=== PATIENT | female | born 1960 | race Caucasian/White ===

== ENCOUNTER 2021-09-09 11:23 | Inpatient (IN) | payer SELFPAY ==
[~2021-09-09] VITALS: Ht 172.7 cm; Wt 54.0 kg
[2021-09-09] MEDS ORDERED: ONDANSETRON PF 4 MG/2 ML VIAL. ONE (11:56)
[2021-09-09] MEDS ORDERED: IV NORMAL SALINE 1000ML BAG 1,000 ML IV ONE (12:00)
[2021-09-09] MEDS ORDERED: ONDANSETRON PF 4 MG/2 ML VIAL. IVP ONE (12:00)
--- NOTE | 2021-09-09 12:21 | PHYS DOC ---
Past Medical History Past Surgical History: No Surgical History Smoking Status: Current Every Day Smoker Alcohol Use: None General Adult EDM: Chief Complaint: NAUSEA/VOMITING/DIARRHEA HPI: HPI: Patient is a 60 year old female who presents via EMS from home with complaint of N/V/D and dizziness. Patient states she has had loose stools off and on for 2 m onths. Her nausea, vomiting and dizziness began this morning. Patient reports her emesis is "greenish." She has not eaten or taken any fluids since about 1999 last night. En route, patient received 500 mL LR and 4 Zofran. Patient denies fever, chills, abdominal pain, chest pain, palpitations, shortness of breath, cough. Review of Systems: Review of Systems: Constitutional: See HPI HEENT: Denies vision changes, nasal congestion or sore throat. Respiratory: See HPI Cardiovascular: See HPI GI: See HPI : Denies dysuria and hematuria. Musculoskeletal: Denies back pain or joint pain. Integument: Denies rash or other skin lesion. Neurologic: Denies headache, focal weakness or sensory changes. Heart Score: C/O Chest Pain: No Current Medications: Current Medications Medications (Trade) Dose Ordered Sig/Gwyn Start Time Stop Time Status Last Admin Dose Admin Ondansetron HCl (Zofran) 4 mg 1X ONCE 09/09/21 12:00 09/09/21 12:01 Sodium Chloride 1,000 ml @ 1,000 mls/hr 1X ONCE 09/09/21 12:00 09/09/21 12:59 Allergies: Allergies: Allergies Coded Allergies Type Severity Reaction Last Updated Verified Sulfa (Sulfonamide Antibiotics) Allergy Intermediate n/v 09/09/21 Yes Physical Exam: PE: Constitutional: Well developed, well nourished, patient is sitting up in bed with retching, spitting mucus but no emesis. Cardiovascular: Heart rate regular rhythm, no murmur. Lungs & Thorax: Bilateral breath sounds clear to auscultation. Abdomen: Bowel sounds normal, soft, no tenderness, no masses, no pulsatile masses. Skin: Warm, dry, no erythema, no rash. Back: No tenderness, no CVA tenderness. Extremities: No tenderness, no cyanosis, no clubbing, ROM intact, no edema. Neurologic: Alert and oriented x3, normal motor function, no focal deficits noted. Current Patient Data: Labs: Laboratory Tests Test 09/09/21 11:45 09/09/21 12:45 09/09/21 12:55 White Blood Count 17.4 x10^3/uL (4.0-11.0) Red Blood Count 3.84 x10^6/uL (3.50-5.40) Hemoglobin 11.8 g/dL (12.0-15.5) Hematocrit 36.1 % (36.0-47.0) Mean Corpuscular Volume 94 fL (79-100) Mean Corpuscular Hemoglobin 31 pg (25-35) Mean Corpuscular Hemoglobin Concent 33 g/dL (31-37) Red Cell Distribution Width 14.4 % (11.5-14.5) Platelet Count 350 x10^3/uL (140-400) Neutrophils (%) (Auto) 81 % (31-73) Lymphocytes (%) (Auto) 15 % (24-48) Monocytes (%) (Auto) 3 % (0-9) Eosinophils (%) (Auto) 1 % (0-3) Basophils (%) (Auto) 0 % (0-3) Neutrophils # (Auto) 14.1 x10^3/uL (1.8-7.7) Lymphocytes # (Auto) 2.6 x10^3/uL (1.0-4.8) Monocytes # (Auto) 0.6 x10^3/uL (0.0-1.1) Eosinophils # (Auto) 0.2 x10^3/uL (0.0-0.7) Basophils # (Auto) 0.0 x10^3/uL (0.0-0.2) Segmented Neutrophils % 68 % (35-66) Band Neutrophils % 7 % (0-9) Lymphocytes % 22 % (24-48) Monocytes % 3 % (0-10) Toxic Granulation Slight Platelet Estimate Adequate (ADEQUATE) Urine Collection Type Unknown Urine Color Yellow Urine Clarity Clear Urine pH 7.5 (<5.0-8.0) Urine Specific [place] 1.010 (1.000-1.030) Urine Protein Negative mg/dL (NEG-TRACE) Urine Glucose (UA) Negative mg/dL (NEG) Urine Ketones (Stick) Negative mg/dL (NEG) Urine Blood Negative (NEG) Urine Nitrite Negative (NEG) Urine Bilirubin Negative (NEG) Urine Urobilinogen Dipstick 0.2 mg/dL (0.2 mg/dL) Urine Leukocyte Esterase Moderate (NEG) Urine RBC 0 /HPF (0-2) Urine WBC 11-20 /HPF (0-4) Urine Squamous Epithelial Cells Occ /LPF Urine Bacteria Many /HPF (0-FEW) Sodium Level 140 mmol/L (136-145) Potassium Level 3.6 mmol/L (3.5-5.1) Chloride Level 107 mmol/L (98-107) Carbon Dioxide Level 25 mmol/L (21-32) Anion Gap 8 (6-14) Blood Urea Nitrogen 19 mg/dL (7-20) Creatinine 0.7 mg/dL (0.6-1.0) Estimated GFR (Cockcroft-Gault) 84.8 BUN/Creatinine Ratio 27 (6-20) Glucose Level 141 mg/dL (70-99) Calcium Level 7.9 mg/dL (8.5-10.1) Total Bilirubin 0.6 mg/dL (0.2-1.0) Aspartate Amino Transf (AST/SGOT) 21 U/L (15-37) Alanine Aminotransferase (ALT/SGPT) 28 U/L (14-59) Alkaline Phosphatase 66 U/L (46-116) Total Protein 6.6 g/dL (6.4-8.2) Albumin 3.4 g/dL (3.4-5.0) Albumin/Globulin Ratio 1.1 (1.0-1.7) Lipase 109 U/L (73-393) Vital Signs: Vital Signs Date Time Temp Pulse Resp B/P (MAP) Pulse Ox O2 Delivery O2 Flow Rate FiO2 09/09/21 11:35 97.4 81 16 139/70 (93) 100 Room Air 97.4 EKG: EKG: EKG Interpreted by Dr. Nixon at 1206: Regular rate and rhythm 76 bpm with no ectopic beats. No concerning ST-T wave changes. RR interval 793 ms, prolonged QT interval 416 ms. Radiology/Procedures: Radiology/Procedures: PROCEDURE: CT ABDOMEN PELVIS WO CONTRAST Abdominal and Pelvis CT, Without Contrast: History: Reason: uti / Spl. Instructions: / History: Comparison: None. Procedure: Axial images are obtained of the abdomen and pelvis, without IV or oral contrast. Oral Contrast: No Findings: Evaluation of solid organs is limited without contrast. The gallbladder appears normal. The appendix is normal. Is calcification the riggs of the aorta without significant aneurysmal change. Liver: Normal. Spleen: Normal. Pancreas: Normal. Adrenal Glands: Normal. Kidneys: Normal. There is no free air or free fluid. There is no lymphadenopathy. The urinary bladder appears normal. There is no pericolonic inflammation identified. Impression: No acute findings. End impression PQRS Compliance Statement: One or more of the following individualized dose reduction techniques were utilized for this examination: 1. Automated exposure control 2. Adjustment of the mA and/or kV according to patient size 3. Use of iterative reconstruction technique Electronically signed by: Maurice Baez III, MD (09/09/2021 5:38 PM) [facility] Course & Med Decision Making: Course & Med Decision Making Pertinent Labs and Imaging studies reviewed. (See chart for details) Patient's daughter called to the department for an update shortly after patient arrival. Patient's daughter states that she lives close by to the patient, and called EMS today because of patient's weakness. On reevaluation, patient states that her vomiting has stopped and she is less nauseated. Lab results concerning for pyelonephritis. Patient will be given p.o. challenge. Should she be able to tolerate by mouth, she will be treated outpatient antibiotics. Patient's nausea and vomiting is intractable. Patient will be admitted to hospitalist, Dr. Baires, for IV antibiotic treatment and nausea. Suzan Disclaimer: Suzan Disclaimer: This electronic medical record was generated, in whole or in part, using a voice recognition dictation system. Departure Departure Impression: Primary Impression: UTI (urinary tract infection) with pyuria Additional Impression: Intractable nausea and vomiting Disposition: ADMITTED INPATIENT Admitting Physician: MATILDE Hadley) Condition: GUARDED KAL FOSTER Sep 09, 2021 12:21
[2021-09-09 12:28] LABS: BASO % 0 % (0-3); EOS # 0.2 x10^3/uL (0.0-0.7); EOS % 1 % (0-3); HEMATOCRIT 36.1 % (36.0-47.0); HEMOGLOBIN 11.8 g/dL (12.0-15.5); LYMPH # 2.6 x10^3/uL (1.0-4.8); LYMPH % 15 % (24-48); MEAN CORPUSCULAR HEMOGLOBIN 31 pg (25-35); MEAN CORPUSCULAR HGB CONC 33 g/dL (31-37); MEAN CORPUSCULAR VOLUME 94 fL (79-100); MONO # 0.6 x10^3/uL (0.0-1.1); MONO % 3 % (0-9); NEUT # 14.1 x10^3/uL (1.8-7.7); NEUT % 81 % (31-73); PLATELET COUNT 350 x10^3/uL (140-400); RED BLOOD COUNT 3.84 x10^6/uL (3.50-5.40); RED CELL DISTRIBUTION WIDTH 14.4 % (11.5-14.5); WHITE BLOOD COUNT 17.4 x10^3/uL (4.0-11.0)
[2021-09-09 13:09] LABS: BILIRUBIN,URINE NEGATIVE (NEG); CLARITY,URINE CLEAR; COLOR,URINE YELLOW; NITRITE,URINE NEGATIVE (NEG); PH,URINE 7.5 (<5.0-8.0); PROTEIN,URINE NEGATIVE (NEG-TRACE); UROBILINOGEN,URINE 0.2 mg/dL (0.2 mg/dL)
[2021-09-09 13:16] LABS: CALCIUM 7.9 mg/dL (8.5-10.1); CREATININE 0.7 mg/dL (0.6-1.0); GFR 84.8; POTASSIUM 3.6 mmol/L (3.5-5.1)
[2021-09-09 13:22] LABS: ALBUMIN 3.4 g/dL (3.4-5.0); ALBUMIN/GLOBULIN RATIO 1.1 (1.0-1.7); TOTAL BILIRUBIN 0.6 mg/dL (0.2-1.0); TOTAL PROTEIN 6.6 g/dL (6.4-8.2)
[2021-09-09 13:31] LABS: BACTERIA,URINE MANY /HPF (0-FEW); RBC,URINE 0 /HPF (0-2)
[2021-09-09 14:00] LABS: % BANDS 7 % (0-9); % LYMPHS 22 % (24-48); % MONOS 3 % (0-10); % SEGS 68 % (35-66); PLT ESTIMATE ADEQUATE (ADEQUATE); TOXIC GRANULATION SLIGHT
[2021-09-09] MEDS ORDERED: CEFP200T PO (14:34)
[2021-09-09] MEDS ORDERED: ONDA4TAB12 PO (14:34)
--- NOTE | 2021-09-09 15:00 | EKG ---
[facility] [address] [place] [address] Test Date: 2021-09-09 Test Time: 12:02:06 Pat Name: CARLOS CHAUHAN Department: Room: Gender: F Welt Sewer: : 1960 Requested By: KAL FOSTER Order Number: [id number] Reading MD: Robin Chisholm Measurements Intervals Carpenter Rate: 76 P: 52 WY: 174 QRS: 13 QRSD: 84 T: 85 QT: 416 QTc: 467 Interpretive Statements SINUS RHYTHM INCOMPLETE RIGHT BUNDLE BRANCH BLOCK T ABNORMALITY IN HIGH LATERAL LEADS ABNORMAL ECG RI6.02 No previous ECG available for comparison Electronically Signed On 09-09-2021 20:54:13 CDT by Robin Chisholm
[2021-09-09] MEDS ORDERED: cefTRIAXone IV Push 1 GM VIAL. IVP ONE (15:15)
[2021-09-09] MEDS ORDERED: PROCHLORPERAZINE 10 MG/2 ML VIAL. ONE (17:26)
[2021-09-09] MEDS ORDERED: PROCHLORPERAZINE 10 MG/2 ML VIAL. IV ONE (17:30)
--- NOTE | 2021-09-09 17:41 | RAD ---
Abdominal and Pelvis CT, Without Contrast: History: Reason: uti / Spl. Instructions: / History: Comparison: None. Procedure: Axial images are obtained of the abdomen and pelvis, without IV or oral contrast. Oral Contrast: No Findings: Evaluation of solid organs is limited without contrast. The gallbladder appears normal. The appendix is normal. Is calcification the riggs of the aorta without significant aneurysmal change. Liver: Normal. Spleen: Normal. Pancreas: Normal. Adrenal Glands: Normal. Kidneys: Normal. There is no free air or free fluid. There is no lymphadenopathy. The urinary bladder appears normal. There is no pericolonic inflammation identified. Impression: No acute findings. End impression PQRS Compliance Statement: One or more of the following individualized dose reduction techniques were utilized for this examinat ion: 1. Automated exposure control 2. Adjustment of the mA and/or kV according to patient size 3. Use of iterative reconstruction technique Electronically signed by: Maurice Baez III, MD (09/09/2021 5:38 PM) [facility]
[2021-09-09] MEDS ORDERED: ACETAMINOPHEN 325 MG TABLET. PO PRN (18:00)
[2021-09-09] MEDS ORDERED: PROCHLORPERAZINE 10 MG/2 ML VIAL. IV PRN (18:00)
[2021-09-09] MEDS ORDERED: ONDANSETRON ODT 4 MG TAB.RAPDIS. PO PRN (18:00)
[2021-09-09] MEDS ORDERED: POTASSIUM CL 20MEQ D5-0.45NACL 1,000 ML IV SCH (18:00)
[2021-09-09] MEDS ORDERED: ONDANSETRON PF 4 MG/2 ML VIAL. IVP PRN ×2 (18:00)
[2021-09-09] MEDS ORDERED: KETOROLAC 30 MG/ML VIAL. IVP PRN (18:00)
--- NOTE | 2021-09-09 18:01 | PDOC1 ---
History and Physical Date of Admission Date of Admission DATE: 09/09/21 TIME: 17:59 Identification/Chief Complaint Chief Complaint Nausea, vomiting, and diarrhea Source Source: Patient History of Present Illness History of Present Illness Ms Bright is a 60 year old female with PMHx HLD, prior TIA who presents via EMS from home with complaint of N/V/D and dizziness. Her nausea, vomiting and dizziness began this morning. She didn't eat anything for breakfast due to nausea. Some dysuria the past day as well. Patient denies fever, chills, abdominal pain, chest pain, palpitations, shortness of breath, cough. No travel or sick contacts. Has felt weak since lunch yesterday. Last meal was a frozen [place] preprepared meal around noon on 09/08/2021 Patient states she has had loose stools off and on for 2 months. Vaccinated against COVID 26 February 2021. Received 500 mL LR and 4 Zofran from EMS and further fluids and zofran and compazine, still vomited after this. Dizziness improved. Labs with WBC 17.4, Hb 11.8, platelets 350, NA 140, K3.6, BUN 19, CR 0.7, glucose 141 calcium 7.9 LFTs within normal laboratory limits lipase 109, UA with moderate leukocyte esterase WBCs otherwise bland. Noncontrast CT abdomen pelvis negative for nephrolithiasis no acute findings. EKG appears sinus rhythm rate of 76 bpm normal axes and intervals no ST segment elevations QTC 416, T WI in V4 and flattening in V6 otherwise normal EKG. No prior for comparison. Nausea not significantly improved by Zofran needed Compazine still had some vomiting diarrhea stool sample collected in ED Admitted for further care. Past Medical History Cardiovascular: Hyperlipidemia CENTRAL NERVOUS SYSTEM: TIA Past Surgical History Past Surgical History: No pertinent history Family History Family History: High Cholestrol Social History Smoke: 1 pack per day ALCOHOL: none Drugs: None Current Problem List Problem List Problems Medical Problems: (1) Intractable nausea and vomiting Status: Acute (2) UTI (urinary tract infection) with pyuria Status: Acute Current Medications Current Medications Current Medications Ondansetron HCl (Zofran) 4 mg STK-MED ONCE .ROUTE ; Start 09/09/21 at 11:56; Stop 09/09/21 at 11:56; Status DC Ondansetron HCl (Zofran) 4 mg 1X ONCE IVP Last administered on 09/09/21at 12:00; Start 09/09/21 at 12:00; Stop 09/09/21 at 12:09; Status DC Sodium Chloride 1,000 ml @ 1,000 mls/hr 1X ONCE IV Last administered on 09/09/21at 12:00; Start 09/09/21 at 12:00; Stop 09/09/21 at 12:59; Status DC Ceftriaxone Sodium (Rocephin) 1 gm 1X ONCE IVP Last administered on 09/09/21at 17:28; Start 09/09/21 at 15:15; Stop 09/09/21 at 15:16; Status DC Prochlorperazine Edisylate (Compazine) 10 mg STK-MED ONCE .ROUTE ; Start 09/09/21 at 17:26; Stop 09/09/21 at 17:26; Status DC Prochlorperazine Edisylate (Compazine) 10 mg 1X ONCE IV Last administered on 09/09/21at 17:32; Start 09/09/21 at 17:30; Stop 09/09/21 at 17:36; Status DC Active Scripts Active Allergies Allergies: Coded Allergies: Sulfa (Sulfonamide Antibiotics) (Verified Allergy, Intermediate, n/v, 09/09/21) ROS General: No: Chills, Night Sweats, Fatigue, Malaise, Appetite, Other PSYCHOLOGICAL ROS: No: Anxiety, Behavioral Disorder, Concentration difficultie, Decreased libido, Depression, Disorientation, Hallucinations, Hostility, Irritablity, Memory difficulties, Mood Swings, Obsessive thoughts, Physical abuse, Sexual abuse, Sleep disturbances, Suicidal ideation, Other Eyes: No Blurry vision, No Decreased vision, No Double vision, No Dry eyes, No Excessive tearing, No Eye Pain, No Itchy Eyes, No Loss of vision, No Photophobia, No Scotomata, No Uses contacts, No Uses glasses, No Other HEENT: No: Heacaches, Visual Changes, Hearing change, Nasal congestion, Nasal discharge, Oral lesions, Sinus pain, Sore Throat, Epistaxis, Sneezing, Snoring, Tinnitus, Vertigo, Vocal changes, Other ALLERGY AND IMMUNOLOGY: No: Hives, Insect Bite Sensitivity, Itchy/Watery Eyes, Nasal Congestion, Post Nasal Drip, Seasonal Allergies, Other Hematological and Lymphatic: No: Bleeding Problems, Blood Clots, Blood Transfusions, Brusing, Night Sweats, Pallor, Swollen Lymph Nodes, Other ENDOCRINE: No: Breast Changes, Galactorrhea, Hair Pattern Changes, Hot Flashes, Malaise/lethargy, Mood Swings, Palpitations, Polydipsia/polyuria, Skin Changes, Temperature Intolerance, Unexpected Weight Changes, Other Breast: No New/Changing Breast Lumps, No Nipple changes, No Nipple discharge, No Other Respiratory: No: Cough, Hemoptysis, Orthopnea, Pleuritic Pain, Shortness of breath, SOB with excertion, Sputum Changes, Stridor, Tachypnea, Wheezing, Other Cardiovascular: No Chest Pain, No Palpitations, No Orthopnea, No Paroxysmal Noc. Dyspnea, No Edema, No Lt Headedness, No Other Gastrointestinal: Yes Nausea, Yes Vomiting, Yes Diarrhea; No Abdominal Pain, No Constipation, No Melena, No Hematochezia, No Other Genitourinary: YES Frequency; No Dysuria, No Incontinence, No Hematuria, No Retention, No Discharge, No Urgency, No Pain, No Flank Pain, No Other, No , No , No , No , No , No , No Musculoskeletal: No Gait Disturbance, No Joint Pain, No Joint Stiffness, No Joint Swelling, No Muscle Pain, No Muscular Weakness, No Pain In:, No Swelling In:, No Other Neurological: No Behavorial Changes, No Bowel/Bladder ControlChng, No Confusion, No Dizziness, No Gait Disturbance, No Headaches, No Impaired Coord/balance, No Memory Loss, No Numbness/Tingling, No Seizures, No Speech Problems, No Tremors, No Visual Changes, No Weakness, No Other Skin: No Dry Skin, No Eczema, No Hair Changes, No Lumps, No Mole Changes, No Mottling, No Nail Changes, No Pruritus, No Rash, No Skin Lesion Changes, No Other, No Acne Physical Exam General: Alert, Oriented X3, Cooperative, mild distress HEENT: Atraumatic, PERRLA, EOMI, Mucous membr. moist/pink Lungs: Clear to auscultation, Normal air movement Heart: S1S2, RRR, no thrills, no rubs, no gallops, no murmurs Abdomen: Normal bowel sounds, Soft, No tenderness, No hepatosplenomegaly, No masses Rectal Exam: not examined Extremities: No clubbing, No cyanosis, No edema, Normal pulses, No tenderness/swelling Skin: No rashes, No breakdown, No significant lesion Neuro: Normal gait, Normal speech, Strength at 5/5 X4 ext, Normal tone, Sensation intact, Cranial nerves 3-12 NL, Reflexes 2+ Psych/Mental Status: Mental status NL, Mood NL Vitals Vitals Vital Signs Date Time Temp Pulse Resp B/P (MAP) Pulse Ox O2 Delivery O2 Flow Rate FiO2 09/09/21 11:35 97.4 81 16 139/70 (93) 100 Room Air 97.4 Labs Labs Laboratory Tests Test 09/09/21 11:45 09/09/21 12:45 09/09/21 12:55 White Blood Count 17.4 x10^3/uL (4.0-11.0) Red Blood Count 3.84 x10^6/uL (3.50-5.40) Hemoglobin 11.8 g/dL (12.0-15.5) Hematocrit 36.1 % (36.0-47.0) Mean Corpuscular Volume 94 fL (79-100) Mean Corpuscular Hemoglobin 31 pg (25-35) Mean Corpuscular Hemoglobin Concent 33 g/dL (31-37) Red Cell Distribution Width 14.4 % (11.5-14.5) Platelet Count 350 x10^3/uL (140-400) Neutrophils (%) (Auto) 81 % (31-73) Lymphocytes (%) (Auto) 15 % (24-48) Monocytes (%) (Auto) 3 % (0-9) Eosinophils (%) (Auto) 1 % (0-3) Basophils (%) (Auto) 0 % (0-3) Neutrophils # (Auto) 14.1 x10^3/uL (1.8-7.7) Lymphocytes # (Auto) 2.6 x10^3/uL (1.0-4.8) Monocytes # (Auto) 0.6 x10^3/uL (0.0-1.1) Eosinophils # (Auto) 0.2 x10^3/uL (0.0-0.7) Basophils # (Auto) 0.0 x10^3/uL (0.0-0.2) Segmented Neutrophils % 68 % (35-66) Band Neutrophils % 7 % (0-9) Lymphocytes % 22 % (24-48) Monocytes % 3 % (0-10) Toxic Granulation Slight Platelet Estimate Adequate (ADEQUATE) Urine Collection Type Unknown Urine Color Yellow Urine Clarity Clear Urine pH 7.5 (<5.0-8.0) Urine Specific [place] 1.010 (1.000-1.030) Urine Protein Negative mg/dL (NEG-TRACE) Urine Glucose (UA) Negative mg/dL (NEG) Urine Ketones (Stick) Negative mg/dL (NEG) Urine Blood Negative (NEG) Urine Nitrite Negative (NEG) Urine Bilirubin Negative (NEG) Urine Urobilinogen Dipstick 0.2 mg/dL (0.2 mg/dL) Urine Leukocyte Esterase Moderate (NEG) Urine RBC 0 /HPF (0-2) Urine WBC 11-20 /HPF (0-4) Urine Squamous Epithelial Cells Occ /LPF Urine Bacteria Many /HPF (0-FEW) Sodium Level 140 mmol/L (136-145) Potassium Level 3.6 mmol/L (3.5-5.1) Chloride Level 107 mmol/L (98-107) Carbon Dioxide Level 25 mmol/L (21-32) Anion Gap 8 (6-14) Blood Urea Nitrogen 19 mg/dL (7-20) Creatinine 0.7 mg/dL (0.6-1.0) Estimated GFR (Cockcroft-Gault) 84.8 BUN/Creatinine Ratio 27 (6-20) Glucose Level 141 mg/dL (70-99) Calcium Level 7.9 mg/dL (8.5-10.1) Total Bilirubin 0.6 mg/dL (0.2-1.0) Aspartate Amino Transf (AST/SGOT) 21 U/L (15-37) Alanine Aminotransferase (ALT/SGPT) 28 U/L (14-59) Alkaline Phosphatase 66 U/L (46-116) Total Protein 6.6 g/dL (6.4-8.2) Albumin 3.4 g/dL (3.4-5.0) Albumin/Globulin Ratio 1.1 (1.0-1.7) Lipase 109 U/L (73-393) Laboratory Tests Test 09/09/21 11:45 09/09/21 12:45 09/09/21 12:55 White Blood Count 17.4 x10^3/uL (4.0-11.0) Red Blood Count 3.84 x10^6/uL (3.50-5.40) Hemoglobin 11.8 g/dL (12.0-15.5) Hematocrit 36.1 % (36.0-47.0) Mean Corpuscular Volume 94 fL (79-100) Mean Corpuscular Hemoglobin 31 pg (25-35) Mean Corpuscular Hemoglobin Concent 33 g/dL (31-37) Red Cell Distribution Width 14.4 % (11.5-14.5) Platelet Count 350 x10^3/uL (140-400) Neutrophils (%) (Auto) 81 % (31-73) Lymphocytes (%) (Auto) 15 % (24-48) Monocytes (%) (Auto) 3 % (0-9) Eosinophils (%) (Auto) 1 % (0-3) Basophils (%) (Auto) 0 % (0-3) Neutrophils # (Auto) 14.1 x10^3/uL (1.8-7.7) Lymphocytes # (Auto) 2.6 x10^3/uL (1.0-4.8) Monocytes # (Auto) 0.6 x10^3/uL (0.0-1.1) Eosinophils # (Auto) 0.2 x10^3/uL (0.0-0.7) Basophils # (Auto) 0.0 x10^3/uL (0.0-0.2) Segmented Neutrophils % 68 % (35-66) Band Neutrophils % 7 % (0-9) Lymphocytes % 22 % (24-48) Monocytes % 3 % (0-10) Toxic Granulation Slight Platelet Estimate Adequate (ADEQUATE) Urine Collection Type Unknown Urine Color Yellow Urine Clarity Clear Urine pH 7.5 (<5.0-8.0) Urine Specific [place] 1.010 (1.000-1.030) Urine Protein Negative mg/dL (NEG-TRACE) Urine Glucose (UA) Negative mg/dL (NEG) Urine Ketones (Stick) Negative mg/dL (NEG) Urine Blood Negative (NEG) Urine Nitrite Negative (NEG) Urine Bilirubin Negative (NEG) Urine Urobilinogen Dipstick 0.2 mg/dL (0.2 mg/dL) Urine Leukocyte Esterase Moderate (NEG) Urine RBC 0 /HPF (0-2) Urine WBC 11-20 /HPF (0-4) Urine Squamous Epithelial Cells Occ /LPF Urine Bacteria Many /HPF (0-FEW) Sodium Level 140 mmol/L (136-145) Potassium Level 3.6 mmol/L (3.5-5.1) Chloride Level 107 mmol/L (98-107) Carbon Dioxide Level 25 mmol/L (21-32) Anion Gap 8 (6-14) Blood Urea Nitrogen 19 mg/dL (7-20) Creatinine 0.7 mg/dL (0.6-1.0) Estimated GFR (Cockcroft-Gault) 84.8 BUN/Creatinine Ratio 27 (6-20) Glucose Level 141 mg/dL (70-99) Calcium Level 7.9 mg/dL (8.5-10.1) Total Bilirubin 0.6 mg/dL (0.2-1.0) Aspartate Amino Transf (AST/SGOT) 21 U/L (15-37) Alanine Aminotransferase (ALT/SGPT) 28 U/L (14-59) Alkaline Phosphatase 66 U/L (46-116) Total Protein 6.6 g/dL (6.4-8.2) Albumin 3.4 g/dL (3.4-5.0) Albumin/Globulin Ratio 1.1 (1.0-1.7) Lipase 109 U/L (73-393) Images Images CT ABDOMEN PELVIS WO CONTRAST Abdominal and Pelvis CT, Without Contrast: History: Reason: uti / Spl. Instructions: / History: Comparison: None. Procedure: Axial images are obtained of the abdomen and pelvis, without IV or oral contrast. Oral Contrast: No Findings: Evaluation of solid organs is limited without contrast. The gallbladder appears normal. The appendix is normal. Is calcification the riggs of the aorta without significant aneurysmal change. Liver: Normal. Spleen: Normal. Pancreas: Normal. Adrenal Glands: Normal. Kidneys: Normal. There is no free air or free fluid. There is no lymphadenopathy. The urinary bladder appears normal. There is no pericolonic inflammation identified. Impression: No acute findings. VTE Prophylaxis Ordered VTE Prophylaxis Devices: No VTE Pharmacological Prophylaxi: Yes Assessment/Plan Assessment/Plan A/P: N/V/D - likely gastroenteritis. though on further history of 2 months of diarrhea will check for bacterial pathogens, ova, parasites Leukocytosis - likely reactive due to above vs early sepsis. Fluids and antibiotics for presumptive UTI Abnormal UA - with dysuria will treat as UTI with rocephin Smoker - counseled on cessation for about 6 minutes FEN - ADAT PPX - lovenox FULL CODE Dispo - inpatient Justifications for Admission Other Justification CAL ESQUEDA MD Sep 09, 2021 18:01
[2021-09-09 20:39] VITALS: BP 149/70
[2021-09-09 23:00] VITALS: BP 135/70
[2021-09-10 03:00] VITALS: BP 130/65
[2021-09-10 07:00] VITALS: BP 145/63
[2021-09-10 08:35] LABS: BASO % 0 % (0-3); EOS # 0.1 x10^3/uL (0.0-0.7); EOS % 0 % (0-3); HEMATOCRIT 36.6 % (36.0-47.0); HEMOGLOBIN 12.2 g/dL (12.0-15.5); LYMPH # 2.1 x10^3/uL (1.0-4.8); LYMPH % 13 % (24-48); MEAN CORPUSCULAR HEMOGLOBIN 31 pg (25-35); MEAN CORPUSCULAR HGB CONC 33 g/dL (31-37); MEAN CORPUSCULAR VOLUME 94 fL (79-100); MONO % 6 % (0-9); NEUT # 13.6 x10^3/uL (1.8-7.7); NEUT % 81 % (31-73); PLATELET COUNT 332 x10^3/uL (140-400); RED CELL DISTRIBUTION WIDTH 14.2 % (11.5-14.5); WHITE BLOOD COUNT 16.9 x10^3/uL (4.0-11.0)
[2021-09-10 08:57] LABS: ALBUMIN 3.7 g/dL (3.4-5.0); CALCIUM 8.6 mg/dL (8.5-10.1); CREATININE 0.7 mg/dL (0.6-1.0); GFR 84.8; POTASSIUM 3.7 mmol/L (3.5-5.1); TOTAL BILIRUBIN 0.6 mg/dL (0.2-1.0); TOTAL PROTEIN 7.5 g/dL (6.4-8.2)
[2021-09-10 11:00] VITALS: BP 134/60
--- NOTE | 2021-09-10 11:26 | PDOC ---
[employer] PROGRESS NOTE Date of Service DOS: DATE: 09/10/21 TIME: 11:25 Chief Complaint Chief Complaint Nausea vomiting diarrhea Leukocytosis UTI Tobacco abuse N/V/D - likely gastroenteritis. though on further history of 2 months of diarrhea will check for bacterial pathogens, ova, parasites Leukocytosis - likely reactive due to above vs early sepsis. Fluids and antibiotics for presumptive UTI Abnormal UA - with dysuria will treat as UTI with rocephin Smoker - counseled on cessation for about 6 minutes FEN - ADAT PPX - lovenox FULL CODE Dispo - inpatient History of Present Illness History of Present Illness 09/10/2021 Patient seen and examined Discussed with RN Chart reviewed Vitals/I&O Vitals/I&O: Vital Signs Date Time Temp Pulse Resp B/P (MAP) Pulse Ox O2 Delivery O2 Flow Rate FiO2 09/10/21 07:00 98.4 79 18 145/63 (90) 96 Room Air 98.4 Physical Exam General: Alert, Oriented X3, Cooperative, mild distress Abdomen: Normal bowel sounds, Soft, No tenderness, No hepatosplenomegaly, No masses Extremities: No clubbing, No cyanosis, No edema, Normal pulses, No tenderness/swelling Skin: No rashes, No breakdown, No significant lesion Labs Labs: Laboratory Tests Test 09/09/21 11:45 09/09/21 12:45 09/09/21 12:55 09/10/21 08:25 White Blood Count 17.4 x10^3/uL (4.0-11.0) 16.9 x10^3/uL (4.0-11.0) Red Blood Count 3.84 x10^6/uL (3.50-5.40) 3.90 x10^6/uL (3.50-5.40) Hemoglobin 11.8 g/dL (12.0-15.5) 12.2 g/dL (12.0-15.5) Hematocrit 36.1 % (36.0-47.0) 36.6 % (36.0-47.0) Mean Corpuscular Volume 94 fL (79-100) 94 fL (79-100) Mean Corpuscular Hemoglobin 31 pg (25-35) 31 pg (25-35) Mean Corpuscular Hemoglobin Concent 33 g/dL (31-37) 33 g/dL (31-37) Red Cell Distribution Width 14.4 % (11.5-14.5) 14.2 % (11.5-14.5) Platelet Count 350 x10^3/uL (140-400) 332 x10^3/uL (140-400) Neutrophils (%) (Auto) 81 % (31-73) 81 % (31-73) Lymphocytes (%) (Auto) 15 % (24-48) 13 % (24-48) Monocytes (%) (Auto) 3 % (0-9) 6 % (0-9) Eosinophils (%) (Auto) 1 % (0-3) 0 % (0-3) Basophils (%) (Auto) 0 % (0-3) 0 % (0-3) Neutrophils # (Auto) 14.1 x10^3/uL (1.8-7.7) 13.6 x10^3/uL (1.8-7.7) Lymphocytes # (Auto) 2.6 x10^3/uL (1.0-4.8) 2.1 x10^3/uL (1.0-4.8) Monocytes # (Auto) 0.6 x10^3/uL (0.0-1.1) 1.0 x10^3/uL (0.0-1.1) Eosinophils # (Auto) 0.2 x10^3/uL (0.0-0.7) 0.1 x10^3/uL (0.0-0.7) Basophils # (Auto) 0.0 x10^3/uL (0.0-0.2) 0.0 x10^3/uL (0.0-0.2) Segmented Neutrophils % 68 % (35-66) Band Neutrophils % 7 % (0-9) Lymphocytes % 22 % (24-48) Monocytes % 3 % (0-10) Toxic Granulation Slight Platelet Estimate Adequate (ADEQUATE) Urine Collection Type Unknown Urine Color Yellow Urine Clarity Clear Urine pH 7.5 (<5.0-8.0) Urine Specific [place] 1.010 (1.000-1.030) Urine Protein Negative mg/dL (NEG-TRACE) Urine Glucose (UA) Negative mg/dL (NEG) Urine Ketones (Stick) Negative mg/dL (NEG) Urine Blood Negative (NEG) Urine Nitrite Negative (NEG) Urine Bilirubin Negative (NEG) Urine Urobilinogen Dipstick 0.2 mg/dL (0.2 mg/dL) Urine Leukocyte Esterase Moderate (NEG) Urine RBC 0 /HPF (0-2) Urine WBC 11-20 /HPF (0-4) Urine Squamous Epithelial Cells Occ /LPF Urine Bacteria Many /HPF (0-FEW) Sodium Level 140 mmol/L (136-145) 141 mmol/L (136-145) Potassium Level 3.6 mmol/L (3.5-5.1) 3.7 mmol/L (3.5-5.1) Chloride Level 107 mmol/L (98-107) 105 mmol/L (98-107) Carbon Dioxide Level 25 mmol/L (21-32) 28 mmol/L (21-32) Anion Gap 8 (6-14) 8 (6-14) Blood Urea Nitrogen 19 mg/dL (7-20) 13 mg/dL (7-20) Creatinine 0.7 mg/dL (0.6-1.0) 0.7 mg/dL (0.6-1.0) Estimated GFR (Cockcroft-Gault) 84.8 84.8 BUN/Creatinine Ratio 27 (6-20) 19 (6-20) Glucose Level 141 mg/dL (70-99) 115 mg/dL (70-99) Calcium Level 7.9 mg/dL (8.5-10.1) 8.6 mg/dL (8.5-10.1) Total Bilirubin 0.6 mg/dL (0.2-1.0) 0.6 mg/dL (0.2-1.0) Aspartate Amino Transf (AST/SGOT) 21 U/L (15-37) 26 U/L (15-37) Alanine Aminotransferase (ALT/SGPT) 28 U/L (14-59) 30 U/L (14-59) Alkaline Phosphatase 66 U/L (46-116) 73 U/L (46-116) Total Protein 6.6 g/dL (6.4-8.2) 7.5 g/dL (6.4-8.2) Albumin 3.4 g/dL (3.4-5.0) 3.7 g/dL (3.4-5.0) Albumin/Globulin Ratio 1.1 (1.0-1.7) 1.0 (1.0-1.7) Lipase 109 U/L (73-393) Assessment and Plan Assessmemt and Plan Problems Medical Problems: (1) Intractable nausea and vomiting Status: Acute (2) UTI (urinary tract infection) with pyuria Status: Acut Vertigo Nausea vomiting diarrhea Leukocytosis UTI Tobacco abuse Plan Fluids IV antibiotics Trend labs PT OT DVT prophylaxis Full code We will consult GI and neurology for a second opinion Comment Review of Relevant I have reviewed the following items jong (where applicable) has been applied. Medications: Current Medications Medications (Trade) Dose Ordered Sig/Gwyn Route PRN Reason Start Time Stop Time Status Last Admin Dose Admin Ondansetron HCl (Zofran) 4 mg 1X ONCE IVP 09/09/21 12:00 09/09/21 12:09 DC 09/09/21 12:00 Sodium Chloride 1,000 ml @ 1,000 mls/hr 1X ONCE IV 09/09/21 12:00 09/09/21 12:59 DC 09/09/21 12:00 Ceftriaxone Sodium (Rocephin) 1 gm 1X ONCE IVP 09/09/21 15:15 09/09/21 15:16 DC 09/09/21 17:28 Prochlorperazine Edisylate (Compazine) 10 mg 1X ONCE IV 09/09/21 17:30 09/09/21 17:36 DC 09/09/21 17:32 Ketorolac Tromethamine (Toradol 30mg Vial) 30 mg PRN Q6HRS PRN IVP INFLAMMATION 09/09/21 18:00 09/10/21 08:00 Potassium Chloride/Dextrose/ Sod Cl 1,000 ml @ 75 mls/hr [id number] IV 09/09/21 18:00 09/10/21 07:19 DC 09/09/21 21:11 Justifications for Admission Other Justification CINDY ANDERSON III, DO Sep 10, 2021 11:26
[2021-09-10] MEDS: IV NORMAL SALINE 1000ML BAG 1,000 ML IV SCH ×2 (12:11→23:23)
--- NOTE | 2021-09-10 13:17 | PDOC2 ---
GI CONSULT Date of Service: DATE: 09/10/21 TIME: 13:07 Reason For Consult: n/v/d HPI: HPI: 60 y/o female admitted through ER. [place] dizzy when she sat up in bed yesterday morning, then vomited bile and foam. Indicates to me that dizziness precipitates n/v. Last meal prior to onset of symptoms was [place] (purchased frozen) on Friday night. Stool tests already ordered. On IV atbx for UTI per primary. No reflux/heartburn, abd pain, hematemesis, hematochezia, melena, constipation, change in appetite, or weight loss. Sometimes when she takes 7-8 pills at once, one will stick but then go down with water. Previously had 1 formed stools QOD or QD; this changed to two loose stools daily about 2 months ago. No previous EGD or colonoscopy. No GB, liver, pancreas, or PUD history. Daily ibuprofen (two pills) for headaches. H/o TIA ("stress induced" in 2011) on ASA 325mg QD. Retired from [employer] (worked nearly 30 years there). Had COVID vaccines. PMH: PMH: TIA, HLD, headaches FH: Family History: Other (mother and father had colon polyps) Social History: Smoke: <1 pack per day ALCOHOL: none Drugs: None ROS: GEN: Denies fevers, chills, sweats HEENT: Denies blurred vision, sore throat CV: Denies chest pain RESP: Denies shortness of air, cough GI: Per HPI : Denies hematuria, dysuria ENDO: Denies weight changes NEURO: Denies confusion, dizziness MSK: Denies weakness, joint pain/swelling SKIN: Denies jaundice, pruritus Vitals: Vitals: Vital Signs Date Time Temp Pulse Resp B/P (MAP) Pulse Ox O2 Delivery O2 Flow Rate FiO2 09/10/21 08:29 Room Air 09/10/21 07:00 98.4 79 18 145/63 (90) 96 98.4 Labs: Labs: Laboratory Tests Test 09/10/21 08:25 White Blood Count 16.9 x10^3/uL (4.0-11.0) Red Blood Count 3.90 x10^6/uL (3.50-5.40) Hemoglobin 12.2 g/dL (12.0-15.5) Hematocrit 36.6 % (36.0-47.0) Mean Corpuscular Volume 94 fL (79-100) Mean Corpuscular Hemoglobin 31 pg (25-35) Mean Corpuscular Hemoglobin Concent 33 g/dL (31-37) Red Cell Distribution Width 14.2 % (11.5-14.5) Platelet Count 332 x10^3/uL (140-400) Neutrophils (%) (Auto) 81 % (31-73) Lymphocytes (%) (Auto) 13 % (24-48) Monocytes (%) (Auto) 6 % (0-9) Eosinophils (%) (Auto) 0 % (0-3) Basophils (%) (Auto) 0 % (0-3) Neutrophils # (Auto) 13.6 x10^3/uL (1.8-7.7) Lymphocytes # (Auto) 2.1 x10^3/uL (1.0-4.8) Monocytes # (Auto) 1.0 x10^3/uL (0.0-1.1) Eosinophils # (Auto) 0.1 x10^3/uL (0.0-0.7) Basophils # (Auto) 0.0 x10^3/uL (0.0-0.2) Sodium Level 141 mmol/L (136-145) Potassium Level 3.7 mmol/L (3.5-5.1) Chloride Level 105 mmol/L (98-107) Carbon Dioxide Level 28 mmol/L (21-32) Anion Gap 8 (6-14) Blood Urea Nitrogen 13 mg/dL (7-20) Creatinine 0.7 mg/dL (0.6-1.0) Estimated GFR (Cockcroft-Gault) 84.8 BUN/Creatinine Ratio 19 (6-20) Glucose Level 115 mg/dL (70-99) Calcium Level 8.6 mg/dL (8.5-10.1) Total Bilirubin 0.6 mg/dL (0.2-1.0) Aspartate Amino Transf (AST/SGOT) 26 U/L (15-37) Alanine Aminotransferase (ALT/SGPT) 30 U/L (14-59) Alkaline Phosphatase 73 U/L (46-116) Total Protein 7.5 g/dL (6.4-8.2) Albumin 3.7 g/dL (3.4-5.0) Albumin/Globulin Ratio 1.0 (1.0-1.7) FECAL WBC,GRAM STAIN Final WBCS FEW Allergies: Coded Allergies: Sulfa (Sulfonamide Antibiotics) (Verified Adverse Reaction, Intermediate, n/v, 09/10/21) Medications: Current Medications Medications (Trade) Dose Ordered Sig/Gwyn Route PRN Reason Start Time Stop Time Status Last Admin Dose Admin Ceftriaxone Sodium (Rocephin) 1 gm 1X ONCE IVP 09/09/21 15:15 09/09/21 15:16 DC 09/09/21 17:28 Prochlorperazine Edisylate (Compazine) 10 mg 1X ONCE IV 09/09/21 17:30 09/09/21 17:36 DC 09/09/21 17:32 Ketorolac Tromethamine (Toradol 30mg Vial) 30 mg PRN Q6HRS PRN IVP INFLAMMATION 09/09/21 18:00 09/10/21 08:00 Potassium Chloride/Dextrose/ Sod Cl 1,000 ml @ 75 mls/hr [id number] IV 09/09/21 18:00 09/10/21 07:19 DC 09/09/21 21:11 Sodium Chloride 1,000 ml @ 75 mls/hr [id number] IV 09/10/21 12:30 09/10/21 12:11 Imaging: Imaging: CT A/P 09/09 Impression: No acute findings. PE: GEN: NAD HEENT: Atraumatic, PERRL LUNGS: CTAB HEART: RRR ABD: NABS, S/ND/NT EXTREMITY: No edema SKIN: No rashes, no jaundice NEURO/PSYCH: A & O 3 A/P: A/P: Dizziness, n/v Leukocytosis, ?UTI Change in bowel habits CRC screen - none H/o headaches on daily ibuprofen H/o TIA on ASA FH colon polyps -- Okay with GI to try advancing diet as tolerated. Await pending stool tests. Will give empiric acid-pulper tender - IV for now - particularly since receiving Toradol. Await neurology opinion. Encouraged follow-up as outpt for screening colonoscopy. JIM DICKINSON Sep 10, 2021 13:17
--- NOTE | 2021-09-10 14:20 | PDOC2 ---
NEUROLOGY CONSULT Date of Service DOS: DATE: 09/10/21 TIME: 14:14 Reason for Consult Reason for Consult: Dr. Willard Source Source: Chart review, Patient History of Present Illness History of Present Illness The patient is a 60-year-old right-handed female who was brought in via emergency medical services from home yesterday morning. She woke up and when she tried to get out of bed, she had intense vertigo. She had an episode of this about 11 years ago and was told that her "ear crystals were out of place." She has been having some loose stools off and on for the past 2 months. She feels a little bit better today. There is no headache, tinnitus, hearing loss, diplopia, dysphagia, dysarthria, focal numbness or weakness. There is no hist ory of stroke, seizure, or head injury. Past Medical History CENTRAL NERVOUS SYSTEM: TIA (Listed in nursing history, patient has no details) ENT: Other (Vertigo) Renal/: UTI, Urinary Incontinence Past Surgical History Past Surgical History: No pertinent history Family History Family History: CAD Social History Social History , lives alone, smokes 5 cigarettes/day, rare alcohol Current Medications Current Medications Current Medications Ondansetron HCl (Zofran) 4 mg STK-MED ONCE .ROUTE ; Start 09/09/21 at 11:56; Stop 09/09/21 at 11:56; Status DC Ondansetron HCl (Zofran) 4 mg 1X ONCE IVP Last administered on 09/09/21at 12:00; Start 09/09/21 at 12:00; Stop 09/09/21 at 12:09; Status DC Sodium Chloride 1,000 ml @ 1,000 mls/hr 1X ONCE IV Last administered on 09/09/21at 12:00; Start 09/09/21 at 12:00; Stop 09/09/21 at 12:59; Status DC Ceftriaxone Sodium (Rocephin) 1 gm 1X ONCE IVP Last administered on 09/09/21at 17:28; Start 09/09/21 at 15:15; Stop 09/09/21 at 15:16; Status DC Prochlorperazine Edisylate (Compazine) 10 mg STK-MED ONCE .ROUTE ; Start 09/09/21 at 17:26; Stop 09/09/21 at 17:26; Status DC Prochlorperazine Edisylate (Compazine) 10 mg 1X ONCE IV Last administered on 09/09/21at 17:32; Start 09/09/21 at 17:30; Stop 09/09/21 at 17:36; Status DC Acetaminophen (Tylenol) 650 mg PRN Q6HRS PRN PO MILD PAIN / TEMP > 100.3'F; Start 09/09/21 at 18:00 Ondansetron HCl (Zofran) 4 mg PRN Q4HRS PRN IVP NAUSEA/VOMITING, 1st CHOICE; Start 09/09/21 at 18:00 Ketorolac Tromethamine (Toradol 30mg Vial) 30 mg PRN Q6HRS PRN IVP INFLAMMATION Last administered on 09/10/21at 08:00; Start 09/09/21 at 18:00 Ondansetron HCl (Zofran Odt) 4 mg PRN Q4HRS PRN PO NAUSEA; Start 09/09/21 at 18:00 Ceftriaxone Sodium (Rocephin) 1 gm Q24H IVP ; Start 09/10/21 at 17:00 Ondansetron HCl (Zofran) 4 mg PRN Q8HRS PRN IVP NAUSEA/VOMITING; Start 09/09/21 at 18:00; Stop 09/10/21 at 17:59; Status UNV Potassium Chloride/Dextrose/ Sod Cl 1,000 ml @ 75 mls/hr [id number] IV Last administered on 09/09/21at 21:11; Start 09/09/21 at 18:00; Stop 09/10/21 at 07:19; Status DC Prochlorperazine Edisylate (Compazine) 10 mg PRN Q6HRS PRN IV NAUSEA/VOMITING, 2nd CHOICE; Start 09/09/21 at 18:00 Sodium Chloride 1,000 ml @ 75 mls/hr [id number] IV Last administered on 09/10/21at 12:11; Start 09/10/21 at 12:30 Pantoprazole Sodium (PROTONIX VIAL for IV PUSH) 40 mg DAILYAC IVP ; Start 09/10/21 at 14:00 Active Scripts Active Allergies Allergies: Coded Allergies: Sulfa (Sulfonamide Antibiotics) (Verified Adverse Reaction, Intermediate, n/v, 09/10/21) ROS Review of System Negative for fever, chills, weight loss, shortness of breath, chest pain, indigestion, hematochezia, melena, and dysuria. Full 14-point review of systems is negative. Physical Exam Physical Examination General: Well-developed, well-nourished, white female, in no acute distress HEENT: Normocephalic andatraumatic. Tympanic membranes clear.Temporal arteriespulsa tile and nontender. Neck: Supple without bruit, no meningismus Musculoskeletal: Stability:see neurologic. Gait exam:see neurologic. Tone:see neurologic.Strength:see neurologic. Neurological: Mental Status:intact, orientation, memory, attention span/concentration, language, fund of knowledge normal. Cranial Nerves:Pupils equal and reactive to light, extraocular movements areintact, visual bob are full to confrontation. Facial sensation is normal. There is no facial asymmetry. Vestibulo-ocular reflex is intact. Alina-Hallpike is negative she feels very comfortable when she is lying flat. Palate elevates and tongue protrudes in midline. All other cranial related problems are negative except as mentioned before.Reflexes:2+ and symmetric with flexor plantar responses. Motor:5/5 strength with normal tone and bulk. Coordination:Finger-nose finger and degj-ti-ajze testing are normal. Rapid alternating movements and fine finger movements are intact. Gait:She complains of vertigo when I try to get her up, I do not detect any nystagmus. Sensory:Normal pinprick, vibration, light touch, proprioception. Vitals VITALS Vital Signs Date Time Temp Pulse Resp B/P (MAP) Pulse Ox O2 Delivery O2 Flow Rate FiO2 09/10/21 08:29 Room Air 09/10/21 07:00 98.4 79 18 145/63 (90) 96 98.4 Labs Labs Laboratory Tests Test 09/09/21 08:25 09/09/21 11:45 09/09/21 12:45 09/09/21 12:55 Troponin I High Sensitivity 7 ng/L (4-50) White Blood Count 17.4 x10^3/uL (4.0-11.0) Red Blood Count 3.84 x10^6/uL (3.50-5.40) Hemoglobin 11.8 g/dL (12.0-15.5) Hematocrit 36.1 % (36.0-47.0) Mean Corpuscular Volume 94 fL (79-100) Mean Corpuscular Hemoglobin 31 pg (25-35) Mean Corpuscular Hemoglobin Concent 33 g/dL (31-37) Red Cell Distribution Width 14.4 % (11.5-14.5) Platelet Count 350 x10^3/uL (140-400) Neutrophils (%) (Auto) 81 % (31-73) Lymphocytes (%) (Auto) 15 % (24-48) Monocytes (%) (Auto) 3 % (0-9) Eosinophils (%) (Auto) 1 % (0-3) Basophils (%) (Auto) 0 % (0-3) Neutrophils # (Auto) 14.1 x10^3/uL (1.8-7.7) Lymphocytes # (Auto) 2.6 x10^3/uL (1.0-4.8) Monocytes # (Auto) 0.6 x10^3/uL (0.0-1.1) Eosinophils # (Auto) 0.2 x10^3/uL (0.0-0.7) Basophils # (Auto) 0.0 x10^3/uL (0.0-0.2) Segmented Neutrophils % 68 % (35-66) Band Neutrophils % 7 % (0-9) Lymphocytes % 22 % (24-48) Monocytes % 3 % (0-10) Toxic Granulation Slight Platelet Estimate Adequate (ADEQUATE) Urine Collection Type Unknown Urine Color Yellow Urine Clarity Clear Urine pH 7.5 (<5.0-8.0) Urine Specific [place] 1.010 (1.000-1.030) Urine Protein Negative mg/dL (NEG-TRACE) Urine Glucose (UA) Negative mg/dL (NEG) Urine Ketones (Stick) Negative mg/dL (NEG) Urine Blood Negative (NEG) Urine Nitrite Negative (NEG) Urine Bilirubin Negative (NEG) Urine Urobilinogen Dipstick 0.2 mg/dL (0.2 mg/dL) Urine Leukocyte Esterase Moderate (NEG) Urine RBC 0 /HPF (0-2) Urine WBC 11-20 /HPF (0-4) Urine Squamous Epithelial Cells Occ /LPF Urine Bacteria Many /HPF (0-FEW) Sodium Level 140 mmol/L (136-145) Potassium Level 3.6 mmol/L (3.5-5.1) Chloride Level 107 mmol/L (98-107) Carbon Dioxide Level 25 mmol/L (21-32) Anion Gap 8 (6-14) Blood Urea Nitrogen 19 mg/dL (7-20) Creatinine 0.7 mg/dL (0.6-1.0) Estimated GFR (Cockcroft-Gault) 84.8 BUN/Creatinine Ratio 27 (6-20) Glucose Level 141 mg/dL (70-99) Calcium Level 7.9 mg/dL (8.5-10.1) Total Bilirubin 0.6 mg/dL (0.2-1.0) Aspartate Amino Transf (AST/SGOT) 21 U/L (15-37) Alanine Aminotransferase (ALT/SGPT) 28 U/L (14-59) Alkaline Phosphatase 66 U/L (46-116) Total Protein 6.6 g/dL (6.4-8.2) Albumin 3.4 g/dL (3.4-5.0) Albumin/Globulin Ratio 1.1 (1.0-1.7) Lipase 109 U/L (73-393) Test 09/10/21 08:25 White Blood Count 16.9 x10^3/uL (4.0-11.0) Red Blood Count 3.90 x10^6/uL (3.50-5.40) Hemoglobin 12.2 g/dL (12.0-15.5) Hematocrit 36.6 % (36.0-47.0) Mean Corpuscular Volume 94 fL (79-100) Mean Corpuscular Hemoglobin 31 pg (25-35) Mean Corpuscular Hemoglobin Concent 33 g/dL (31-37) Red Cell Distribution Width 14.2 % (11.5-14.5) Platelet Count 332 x10^3/uL (140-400) Neutrophils (%) (Auto) 81 % (31-73) Lymphocytes (%) (Auto) 13 % (24-48) Monocytes (%) (Auto) 6 % (0-9) Eosinophils (%) (Auto) 0 % (0-3) Basophils (%) (Auto) 0 % (0-3) Neutrophils # (Auto) 13.6 x10^3/uL (1.8-7.7) Lymphocytes # (Auto) 2.1 x10^3/uL (1.0-4.8) Monocytes # (Auto) 1.0 x10^3/uL (0.0-1.1) Eosinophils # (Auto) 0.1 x10^3/uL (0.0-0.7) Basophils # (Auto) 0.0 x10^3/uL (0.0-0.2) Sodium Level 141 mmol/L (136-145) Potassium Level 3.7 mmol/L (3.5-5.1) Chloride Level 105 mmol/L (98-107) Carbon Dioxide Level 28 mmol/L (21-32) Anion Gap 8 (6-14) Blood Urea Nitrogen 13 mg/dL (7-20) Creatinine 0.7 mg/dL (0.6-1.0) Estimated GFR (Cockcroft-Gault) 84.8 BUN/Creatinine Ratio 19 (6-20) Glucose Level 115 mg/dL (70-99) Calcium Level 8.6 mg/dL (8.5-10.1) Total Bilirubin 0.6 mg/dL (0.2-1.0) Aspartate Amino Transf (AST/SGOT) 26 U/L (15-37) Alanine Aminotransferase (ALT/SGPT) 30 U/L (14-59) Alkaline Phosphatase 73 U/L (46-116) Total Protein 7.5 g/dL (6.4-8.2) Albumin 3.7 g/dL (3.4-5.0) Albumin/Globulin Ratio 1.0 (1.0-1.7) Laboratory Tests Test 09/10/21 08:25 White Blood Count 16.9 x10^3/uL (4.0-11.0) Red Blood Count 3.90 x10^6/uL (3.50-5.40) Hemoglobin 12.2 g/dL (12.0-15.5) Hematocrit 36.6 % (36.0-47.0) Mean Corpuscular Volume 94 fL (79-100) Mean Corpuscular Hemoglobin 31 pg (25-35) Mean Corpuscular Hemoglobin Concent 33 g/dL (31-37) Red Cell Distribution Width 14.2 % (11.5-14.5) Platelet Count 332 x10^3/uL (140-400) Neutrophils (%) (Auto) 81 % (31-73) Lymphocytes (%) (Auto) 13 % (24-48) Monocytes (%) (Auto) 6 % (0-9) Eosinophils (%) (Auto) 0 % (0-3) Basophils (%) (Auto) 0 % (0-3) Neutrophils # (Auto) 13.6 x10^3/uL (1.8-7.7) Lymphocytes # (Auto) 2.1 x10^3/uL (1.0-4.8) Monocytes # (Auto) 1.0 x10^3/uL (0.0-1.1) Eosinophils # (Auto) 0.1 x10^3/uL (0.0-0.7) Basophils # (Auto) 0.0 x10^3/uL (0.0-0.2) Sodium Level 141 mmol/L (136-145) Potassium Level 3.7 mmol/L (3.5-5.1) Chloride Level 105 mmol/L (98-107) Carbon Dioxide Level 28 mmol/L (21-32) Anion Gap 8 (6-14) Blood Urea Nitrogen 13 mg/dL (7-20) Creatinine 0.7 mg/dL (0.6-1.0) Estimated GFR (Cockcroft-Gault) 84.8 BUN/Creatinine Ratio 19 (6-20) Glucose Level 115 mg/dL (70-99) Calcium Level 8.6 mg/dL (8.5-10.1) Total Bilirubin 0.6 mg/dL (0.2-1.0) Aspartate Amino Transf (AST/SGOT) 26 U/L (15-37) Alanine Aminotransferase (ALT/SGPT) 30 U/L (14-59) Alkaline Phosphatase 73 U/L (46-116) Total Protein 7.5 g/dL (6.4-8.2) Albumin 3.7 g/dL (3.4-5.0) Albumin/Globulin Ratio 1.0 (1.0-1.7) Assessment/Plan Assessment/Plan Impression: I suspect another attack of benign positional vertigo, but it is atypical for it to be worse when she sits up. I do not detect any positional nystagmus that helps with the confirmation of the diagnosis. On the other hand, there is no evidence of any central nervous system disease. Recommendations: Meclizine on a schedule Physical therapy Holding off on MRI of the brain for now, but will check one if she is no better by tomorrow. Thank you for letting me help with the patient's care. ALONDRA MARTINES MD Sep 10, 2021 14:20
[2021-09-10 15:00] VITALS: BP 138/62
[2021-09-10] MEDS: MECLIZINE HCL 12.5 MG TABLET. PO SCH ×2 (15:16→21:47)
[2021-09-10] MEDS: PANTOPRAZOLE IV PUSH 40 MG VIAL. IVP SCH (15:16)
[2021-09-10] MEDS ORDERED: cefTRIAXone IV Push 1 GM VIAL. IVP SCH (17:00)
[2021-09-10 19:35] VITALS: BP 159/76
[2021-09-10] MEDS: LACTOBACILLUS RHAMNOSUS GG 1 CAPSULE. PO SCH (21:47)
[2021-09-10 23:06] VITALS: BP 157/64
[2021-09-11 03:34] VITALS: BP 161/54
[2021-09-11 04:49] LABS: HEMATOCRIT 37.7 % (36.0-47.0); HEMOGLOBIN 12.3 g/dL (12.0-15.5); RED BLOOD COUNT 4.02 x10^6/uL (3.50-5.40); RED CELL DISTRIBUTION WIDTH 14.2 % (11.5-14.5); WHITE BLOOD COUNT 13.7 x10^3/uL (4.0-11.0)
[2021-09-11 05:05] LABS: CALCIUM 8.6 mg/dL (8.5-10.1); CREATININE 0.6 mg/dL (0.6-1.0); GFR 101.3
--- NOTE | 2021-09-11 05:05 | NUR ---
Dr Sudheer santamaria for critical Potassium of 2.9. Patient has been voiding frequently all noc. 1 episode of liquid diarrhea. Able to get to [facility] w/ SBA w/o vertigo.
[2021-09-11 05:10] LABS: POTASSIUM 2.9 mmol/L (3.5-5.1)
[2021-09-11] MEDS ORDERED: POTASSIUM CHLORIDE 20 MEQ TABLET.ER. PO ONE (06:15)
[2021-09-11] MEDS: PANTOPRAZOLE IV PUSH 40 MG VIAL. IVP SCH (06:41)
[2021-09-11 07:00] VITALS: BP 154/71
[2021-09-11] MEDS: LACTOBACILLUS RHAMNOSUS GG 1 CAPSULE. PO SCH (09:12)
[2021-09-11] MEDS: MECLIZINE HCL 12.5 MG TABLET. PO SCH (09:13)
--- NOTE | 2021-09-11 10:00 | NUR ---
Ambulating in room without difficulty. No c/o nausea or dizziness. Cont. monitor.
--- NOTE | 2021-09-11 10:16 | PDOC ---
PROGRESS NOTES Date of Service DATE: 09/11/21 TIME: 10:13 Assessment Problems Medical Problems: (1) Intractable nausea and vomiting Status: Acute (2) UTI (urinary tract infection) with pyuria Status: Acute Benign positional vertigo, atypical for it to be worse when she sits up. Nonetheless she feels much better today and there is still no evidence of any central nervous system abnormality. Plan Meclizine, changed to as needed Physical therapy Holding off on MRI of the brain Okay for discharge later today Patient should discontinue meclizine after a week or 2, I told her, because prolonged use interferes with the healing process Follow-up with ENT as an outpatient or vestibular audiology Follow-up with neurology as needed Subjective Feels much better Objective Vital Signs Date Time Temp Pulse Resp B/P (MAP) Pulse Ox O2 Delivery O2 Flow Rate FiO2 09/11/21 07:00 98.1 70 18 154/71 (98) 98 Room Air 98.1 Intake and Output 09/11/21 07:00 Output Total 500 ml Balance -500 ml Output Urine Total 500 ml # Voids 7 PHYSICAL EXAM Alert. Oriented to time, place and person. PERRL. EOMI. CN: no focal findings. No nystagmus elicited on provoking maneuvers Muscle tone: normal. Muscle strength: 5/5 DTR: 2+ Plantar reflex: Flexor Gait: A little unsteady Sensory exam: no abnormal findings. No cerebellar signs elicited. NEUROLOGICAL EXAMINATION: Mental Status Examination: Alert. Oriented to time, place, and person. [ ] answers questions and follows commends. Pupils are equal round and reactive to light and accommodation. Funduscopic exam: No papilledema. Extraocular movements are intact. Visual field exam shows no defect on the direct confrontation. No motor or sensory deficits on the facial exam. Uvula in the midline and the soft palate elevated symmetrically. No deviation of the tongue to any direction. Gross hearing is normal. Shoulder shrug normal. Muscle tone is normal. Muscle strength is 5. Deep tendon reflexes are 2+ all around. Plantar reflex is with flexion response bilaterally. Secmcm-ac-[id number] test performance is accurate. Tandem walk test is accurate. Alternative movements are accurate. Romberg test is negative. Gait is normal. Sensory exam shows no deficits. No cerebellar signs are elicited. Review of Relevant I have reviewed the following items jong (where applicable) has been applied. Labs Laboratory Tests Test 10/31/21 11:30 09/09/21 11:45 09/09/21 12:45 09/09/21 12:55 Clostridium difficile Toxin (PCR) Negative (NEGATIVE) White Blood Count 17.4 x10^3/uL (4.0-11.0) Red Blood Count 3.84 x10^6/uL (3.50-5.40) Hemoglobin 11.8 g/dL (12.0-15.5) Hematocrit 36.1 % (36.0-47.0) Mean Corpuscular Volume 94 fL (79-100) Mean Corpuscular Hemoglobin 31 pg (25-35) Mean Corpuscular Hemoglobin Concent 33 g/dL (31-37) Red Cell Distribution Width 14.4 % (11.5-14.5) Platelet Count 350 x10^3/uL (140-400) Neutrophils (%) (Auto) 81 % (31-73) Lymphocytes (%) (Auto) 15 % (24-48) Monocytes (%) (Auto) 3 % (0-9) Eosinophils (%) (Auto) 1 % (0-3) Basophils (%) (Auto) 0 % (0-3) Neutrophils # (Auto) 14.1 x10^3/uL (1.8-7.7) Lymphocytes # (Auto) 2.6 x10^3/uL (1.0-4.8) Monocytes # (Auto) 0.6 x10^3/uL (0.0-1.1) Eosinophils # (Auto) 0.2 x10^3/uL (0.0-0.7) Basophils # (Auto) 0.0 x10^3/uL (0.0-0.2) Segmented Neutrophils % 68 % (35-66) Band Neutrophils % 7 % (0-9) Lymphocytes % 22 % (24-48) Monocytes % 3 % (0-10) Toxic Granulation Slight Platelet Estimate Adequate (ADEQUATE) Urine Collection Type Unknown Urine Color Yellow Urine Clarity Clear Urine pH 7.5 (<5.0-8.0) Urine Specific Cameron 1.010 (1.000-1.030) Urine Protein Negative mg/dL (NEG-TRACE) Urine Glucose (UA) Negative mg/dL (NEG) Urine Ketones (Stick) Negative mg/dL (NEG) Urine Blood Negative (NEG) Urine Nitrite Negative (NEG) Urine Bilirubin Negative (NEG) Urine Urobilinogen Dipstick 0.2 mg/dL (0.2 mg/dL) Urine Leukocyte Esterase Moderate (NEG) Urine RBC 0 /HPF (0-2) Urine WBC 11-20 /HPF (0-4) Urine Squamous Epithelial Cells Occ /LPF Urine Bacteria Many /HPF (0-FEW) Sodium Level 140 mmol/L (136-145) Potassium Level 3.6 mmol/L (3.5-5.1) Chloride Level 107 mmol/L (98-107) Carbon Dioxide Level 25 mmol/L (21-32) Anion Gap 8 (6-14) Blood Urea Nitrogen 19 mg/dL (7-20) Creatinine 0.7 mg/dL (0.6-1.0) Estimated GFR (Cockcroft-Gault) 84.8 BUN/Creatinine Ratio 27 (6-20) Glucose Level 141 mg/dL (70-99) Calcium Level 7.9 mg/dL (8.5-10.1) Total Bilirubin 0.6 mg/dL (0.2-1.0) Aspartate Amino Transf (AST/SGOT) 21 U/L (15-37) Alanine Aminotransferase (ALT/SGPT) 28 U/L (14-59) Alkaline Phosphatase 66 U/L (46-116) Total Protein 6.6 g/dL (6.4-8.2) Albumin 3.4 g/dL (3.4-5.0) Albumin/Globulin Ratio 1.1 (1.0-1.7) Lipase 109 U/L (73-393) Test 09/10/21 08:25 09/11/21 04:05 White Blood Count 16.9 x10^3/uL (4.0-11.0) 13.7 x10^3/uL (4.0-11.0) Red Blood Count 3.90 x10^6/uL (3.50-5.40) 4.02 x10^6/uL (3.50-5.40) Hemoglobin 12.2 g/dL (12.0-15.5) 12.3 g/dL (12.0-15.5) Hematocrit 36.6 % (36.0-47.0) 37.7 % (36.0-47.0) Mean Corpuscular Volume 94 fL (79-100) 94 fL (79-100) Mean Corpuscular Hemoglobin 31 pg (25-35) 31 pg (25-35) Mean Corpuscular Hemoglobin Concent 33 g/dL (31-37) 33 g/dL (31-37) Red Cell Distribution Width 14.2 % (11.5-14.5) 14.2 % (11.5-14.5) Platelet Count 332 x10^3/uL (140-400) 321 x10^3/uL (140-400) Neutrophils (%) (Auto) 81 % (31-73) Lymphocytes (%) (Auto) 13 % (24-48) Monocytes (%) (Auto) 6 % (0-9) Eosinophils (%) (Auto) 0 % (0-3) Basophils (%) (Auto) 0 % (0-3) Neutrophils # (Auto) 13.6 x10^3/uL (1.8-7.7) Lymphocytes # (Auto) 2.1 x10^3/uL (1.0-4.8) Monocytes # (Auto) 1.0 x10^3/uL (0.0-1.1) Eosinophils # (Auto) 0.1 x10^3/uL (0.0-0.7) Basophils # (Auto) 0.0 x10^3/uL (0.0-0.2) Sodium Level 141 mmol/L (136-145) 141 mmol/L (136-145) Potassium Level 3.7 mmol/L (3.5-5.1) 2.9 mmol/L (3.5-5.1) Chloride Level 105 mmol/L (98-107) 104 mmol/L (98-107) Carbon Dioxide Level 28 mmol/L (21-32) 24 mmol/L (21-32) Anion Gap 8 (6-14) 13 (6-14) Blood Urea Nitrogen 13 mg/dL (7-20) 9 mg/dL (7-20) Creatinine 0.7 mg/dL (0.6-1.0) 0.6 mg/dL (0.6-1.0) Estimated GFR (Cockcroft-Gault) 84.8 101.3 BUN/Creatinine Ratio 19 (6-20) Glucose Level 115 mg/dL (70-99) 89 mg/dL (70-99) Calcium Level 8.6 mg/dL (8.5-10.1) 8.6 mg/dL (8.5-10.1) Total Bilirubin 0.6 mg/dL (0.2-1.0) Aspartate Amino Transf (AST/SGOT) 26 U/L (15-37) Alanine Aminotransferase (ALT/SGPT) 30 U/L (14-59) Alkaline Phosphatase 73 U/L (46-116) Total Protein 7.5 g/dL (6.4-8.2) Albumin 3.7 g/dL (3.4-5.0) Albumin/Globulin Ratio 1.0 (1.0-1.7) Laboratory Tests Test 09/11/21 04:05 White Blood Count 13.7 x10^3/uL (4.0-11.0) Red Blood Count 4.02 x10^6/uL (3.50-5.40) Hemoglobin 12.3 g/dL (12.0-15.5) Hematocrit 37.7 % (36.0-47.0) Mean Corpuscular Volume 94 fL (79-100) Mean Corpuscular Hemoglobin 31 pg (25-35) Mean Corpuscular Hemoglobin Concent 33 g/dL (31-37) Red Cell Distribution Width 14.2 % (11.5-14.5) Platelet Count 321 x10^3/uL (140-400) Sodium Level 141 mmol/L (136-145) Potassium Level 2.9 mmol/L (3.5-5.1) Chloride Level 104 mmol/L (98-107) Carbon Dioxide Level 24 mmol/L (21-32) Anion Gap 13 (6-14) Blood Urea Nitrogen 9 mg/dL (7-20) Creatinine 0.6 mg/dL (0.6-1.0) Estimated GFR (Cockcroft-Gault) 101.3 Glucose Level 89 mg/dL (70-99) Calcium Level 8.6 mg/dL (8.5-10.1) Microbiology 09/09/21 Urine Culture - Preliminary, Resulted 09/09/21 Fecal Leukocyte Stain - Final, Complete Medications Current Medications Ondansetron HCl (Zofran) 4 mg STK-MED ONCE .ROUTE ; Start 09/09/21 at 11:56; Stop 09/09/21 at 11:56; Status DC Ondansetron HCl (Zofran) 4 mg 1X ONCE IVP Last administered on 09/09/21at 12:00; Start 09/09/21 at 12:00; Stop 09/09/21 at 12:09; Status DC Sodium Chloride 1,000 ml @ 1,000 mls/hr 1X ONCE IV Last administered on 09/09/21at 12:00; Start 09/09/21 at 12:00; Stop 09/09/21 at 12:59; Status DC Ceftriaxone Sodium (Rocephin) 1 gm 1X ONCE IVP Last administered on 09/09/21at 17:28; Start 09/09/21 at 15:15; Stop 09/09/21 at 15:16; Status DC Prochlorperazine Edisylate (Compazine) 10 mg STK-MED ONCE .ROUTE ; Start 09/09/21 at 17:26; Stop 09/09/21 at 17:26; Status DC Prochlorperazine Edisylate (Compazine) 10 mg 1X ONCE IV Last administered on 09/09/21at 17:32; Start 09/09/21 at 17:30; Stop 09/09/21 at 17:36; Status DC Acetaminophen (Tylenol) 650 mg PRN Q6HRS PRN PO MILD PAIN / TEMP > 100.3'F; Start 09/09/21 at 18:00 Ondansetron HCl (Zofran) 4 mg PRN Q4HRS PRN IVP NAUSEA/VOMITING, 1st CHOICE; Start 09/09/21 at 18:00 Ketorolac Tromethamine (Toradol 30mg Vial) 30 mg PRN Q6HRS PRN IVP INFLAMMATION Last administered on 09/10/21at 08:00; Start 09/09/21 at 18:00; Stop 09/11/21 at 09:18; Status DC Ondansetron HCl (Zofran Odt) 4 mg PRN Q4HRS PRN PO NAUSEA; Start 09/09/21 at 18:00 Ceftriaxone Sodium (Rocephin) 1 gm Q24H IVP Last administered on 09/10/21at 17:45; Start 09/10/21 at 17:00 Ondansetron HCl (Zofran) 4 mg PRN Q8HRS PRN IVP NAUSEA/VOMITING; Start 09/09/21 at 18:00; Stop 09/10/21 at 17:59; Status UNV Potassium Chloride/Dextrose/ Sod Cl 1,000 ml @ 75 mls/hr [id number] IV Last administered on 09/09/21at 21:11; Start 09/09/21 at 18:00; Stop 09/10/21 at 07:19; Status DC Prochlorperazine Edisylate (Compazine) 10 mg PRN Q6HRS PRN IV NAUSEA/VOMITING, 2nd CHOICE; Start 09/09/21 at 18:00 Sodium Chloride 1,000 ml @ 75 mls/hr [id number] IV Last administered on 09/10/21at 23:23; Start 09/10/21 at 12:30 Pantoprazole Sodium (PROTONIX VIAL for IV PUSH) 40 mg DAILYAC IVP Last administered on 09/11/21at 06:41; Start 09/10/21 at 14:00 Meclizine HCl (Antivert) 25 mg TID PO Last administered on 09/11/21at 09:13; Start 09/10/21 at 15:00 Lactobacillus Rhamnosus (Culturelle) 1 cap BID PO Last administered on 09/11/21at 09:12; Start 09/10/21 at 21:00 Potassium Chloride (Klor-Con) 40 meq 1X ONCE PO Last administered on 09/11/21at 06:40; Start 09/11/21 at 06:15; Stop 09/11/21 at 06:20; Status DC Active Scripts Active Vitals/I & O Vital Sign - Last 24 Hours 09/10/21 09/10/21 09/10/21 09/10/21 11:00 15:00 19:35 20:00 Temp 98.4 98.4 98.5 98.4 98.4 98.5 Pulse 80 84 78 Resp 16 18 18 B/P (MAP) 134/60 (84) 138/62 (87) 159/76 (103) Pulse Ox 96 94 98 O2 Delivery Room Air Room Air Room Air Room Air 09/10/21 09/11/21 09/11/21 23:06 03:34 07:00 Temp 98.2 97.9 98.1 98.2 97.9 98.1 Pulse 81 82 70 Resp 18 18 18 B/P (MAP) 157/64 (95) 161/54 (89) 154/71 (98) Pulse Ox 97 97 98 O2 Delivery Room Air Room Air Room Air Intake and Output 09/10/21 09/10/21 09/11/21 15:00 23:00 07:00 Output Total 500 ml Balance -500 ml Justicifation of Admission Dx: Justifications for Admission: Justification of Admission Dx: N/A ALONDRA MARTINES MD Sep 11, 2021 10:16
[2021-09-11] MEDS ORDERED: CEFD300C PO (10:23)
[2021-09-11] MEDS ORDERED: PANT40TA77 PO (10:23)
[2021-09-11] MEDS ORDERED: MECL12.582 PO (10:23)
--- NOTE | 2021-09-11 10:43 | NUR ---
SW following. Discussed with RN, pt from home alone, room air, regular diet. Therapy recommending home. Okay for discharge per Neuro. Med Assist following for self pay status. SW will continue to follow.
--- NOTE | 2021-09-11 10:47 | PDOC ---
Date of Service: DATE: 09/11/21 TIME: 10:43 Subjective: Subjective: Less dizziness today - has been up to commode three times without much problem. No n/v. Tells me no diarrhea. Objective: Objective: C Diff was negative. Vital Signs: Vital Signs Date Time Temp Pulse Resp B/P (MAP) Pulse Ox O2 Delivery O2 Flow Rate FiO2 09/11/21 07:35 Room Air 09/11/21 07:00 98.1 70 18 154/71 (98) 98 98.1 Labs: URINE CULTURE Preliminary Preliminary >100,000 CFU/ML FINAL ID= [ESCHERICHIA COLI] Laboratory Tests Test 09/11/21 04:05 White Blood Count 13.7 x10^3/uL Red Blood Count 4.02 x10^6/uL Hemoglobin 12.3 g/dL Hematocrit 37.7 % Mean Corpuscular Volume 94 fL Mean Corpuscular Hemoglobin 31 pg Mean Corpuscular Hemoglobin Concent 33 g/dL Red Cell Distribution Width 14.2 % Platelet Count 321 x10^3/uL Sodium Level 141 mmol/L Potassium Level 2.9 mmol/L Chloride Level 104 mmol/L Carbon Dioxide Level 24 mmol/L Anion Gap 13 Blood Urea Nitrogen 9 mg/dL Creatinine 0.6 mg/dL Estimated GFR (Cockcroft-Gault) 101.3 Glucose Level 89 mg/dL Calcium Level 8.6 mg/dL Current Medications Medications (Trade) Dose Ordered Sig/Gwyn Route PRN Reason Start Time Stop Time Status Last Admin Dose Admin Ondansetron HCl (Zofran) 4 mg STK-MED ONCE .ROUTE 09/09/21 11:56 09/09/21 11:56 DC Ondansetron HCl (Zofran) 4 mg 1X ONCE IVP 09/09/21 12:00 09/09/21 12:09 DC 09/09/21 12:00 Sodium Chloride 1,000 ml @ 1,000 mls/hr 1X ONCE IV 09/09/21 12:00 09/09/21 12:59 DC 09/09/21 12:00 Ceftriaxone Sodium (Rocephin) 1 gm 1X ONCE IVP 09/09/21 15:15 09/09/21 15:16 DC 09/09/21 17:28 Prochlorperazine Edisylate (Compazine) 10 mg STK-MED ONCE .ROUTE 09/09/21 17:26 09/09/21 17:26 DC Prochlorperazine Edisylate (Compazine) 10 mg 1X ONCE IV 09/09/21 17:30 09/09/21 17:36 DC 09/09/21 17:32 Acetaminophen (Tylenol) 650 mg PRN Q6HRS PRN PO MILD PAIN / TEMP > 100.3'F 09/09/21 18:00 Ondansetron HCl (Zofran) 4 mg PRN Q4HRS PRN IVP NAUSEA/VOMITING, 1st CHOICE 09/09/21 18:00 Ketorolac Tromethamine (Toradol 30mg Vial) 30 mg PRN Q6HRS PRN IVP INFLAMMATION 09/09/21 18:00 09/11/21 09:18 DC 09/10/21 08:00 Ondansetron HCl (Zofran Odt) 4 mg PRN Q4HRS PRN PO NAUSEA 09/09/21 18:00 Ceftriaxone Sodium (Rocephin) 1 gm Q24H IVP 09/10/21 17:00 09/11/21 10:19 DC 09/10/21 17:45 Ondansetron HCl (Zofran) 4 mg PRN Q8HRS PRN IVP NAUSEA/VOMITING 09/09/21 18:00 09/10/21 17:59 UNV Potassium Chloride/Dextrose/ Sod Cl 1,000 ml @ 75 mls/hr [id number] IV 09/09/21 18:00 09/10/21 07:19 DC 09/09/21 21:11 Prochlorperazine Edisylate (Compazine) 10 mg PRN Q6HRS PRN IV NAUSEA/VOMITING, 2nd CHOICE 09/09/21 18:00 Sodium Chloride 1,000 ml @ 75 mls/hr [id number] IV 09/10/21 12:30 09/10/21 23:23 Pantoprazole Sodium (PROTONIX VIAL for IV PUSH) 40 mg DAILYAC IVP 09/10/21 14:00 09/11/21 06:41 Meclizine HCl (Antivert) 25 mg TID PO 09/10/21 15:00 09/11/21 10:15 DC 09/11/21 09:13 Lactobacillus Rhamnosus (Culturelle) 1 cap BID PO 09/10/21 21:00 09/11/21 09:12 Potassium Chloride (Klor-Con) 40 meq 1X ONCE PO 09/11/21 06:15 09/11/21 06:20 DC 09/11/21 06:40 Meclizine HCl (Antivert) 25 mg PRN TID PRN PO DIZZINESS 09/11/21 15:13 Cefdinir (Omnicef) 300 mg BID PO 09/11/21 21:00 09/16/21 20:59 PE: GEN: NAD - up in chair, doesn't have glasses so did not recognize me from yes terday, therapy present LUNGS: CTAB HEART: RRR ABD: S/ND/NT NEURO/PSYCH: A & O 3 A/P: Vertigo - dizziness and n/v resolving w/ meclizine UTI, hypokalemia - per primary Change in bowel habits H/o headaches and TIA on ASA and ibuprofen FH colon polyps -- Tolerating diet, no excessive stooling. DC per primary. Follow-up for outpt scopes - our office will contact to schedule. Probably good idea to continue some type of acid-welder tool and die if to continue daily ibuprofen and ASA. Justicifation of Admission Dx: Justifications for Admission: Justification of Admission Dx: N/A JIM DICKINSON Sep 11, 2021 10:47
--- NOTE | 2021-09-11 11:25 | PDOC3 ---
[facility]-Discharge Summary Date of Admission: Date of Admission: Sep 09, 2021 Date of Discharge: Date of Discharge: Sep 11, 2021 Admission Diagnosis: Problems: (1) Vertigo (2) UTI (urinary tract infection) with pyuria (3) Intractable nausea and vomiting Discharge Diagnosis: Discharge Diagnosis: Same Consults: Consults: Neuro, GI Hospital Course: Hospital Course: Chief Complaint Nausea vomiting diarrhea Leukocytosis UTI Tobacco abuse N/V/D - likely gastroenteritis. though on further history of 2 months of diarrhea will check for bacterial pathogens, ova, parasites Leukocytosis - likely reactive due to above vs early sepsis. Fluids and antibiotics for presumptive UTI Abnormal UA - with dysuria will treat as UTI with rocephin Smoker - counseled on cessation for about 6 minutes FEN - ADAT PPX - lovenox FULL CODE Dispo - inpatient History of Present Illness History of Present Illness 09/10/2021 Patient seen and examined Discussed with RN Chart reviewed 09/11 Patient evaluated examined at bedside. Reports feeling much better overall tolerating p.o. intake. Worked well with physical therapy. Said the dizziness has improved notably. Plan for discharge home today. I spent greater than 30 minutes in the planning coordination and [id number] the patient regarding discharge. I spent 15 minutes discussing advanced care planning with this patient. Disposition: Disposition/Orders: D/C to Home Activity: Activity: Resume previous activity Diet: Diet: Regular Medications: Home Meds Active Scripts Pantoprazole Sodium (PROTONIX ) 40 Mg Tablet.dr, 40 MG PO DAILYAC for GERD for 60 Days, #60 TAB Prov:CAL HARDIN MD 09/11/21 Meclizine Hcl (MECLIZINE HCL) 12.5 Mg Tablet, 25 MG PO TID PRN PRN for DIZZINESS for 90 Days, #180 TAB Prov:CAL HARDIN MD 09/11/21 Cefdinir (CEFDINIR) 300 Mg Capsule, 300 MG PO BID for uti for 5 Days, #10 CAP Prov:CAL HARDIN MD 09/11/21 Discontinued Scripts Ondansetron (ONDANSETRON ODT) 4 Mg Tab.rapdis, 1 TAB PO PRN Q6-8HRS, #20 TAB Prov:KAL FOSTER 09/09/21 Cefpodoxime Proxetil (CEFPODOXIME PROXETIL) 200 Mg Tablet, 1 TAB PO BID for 14 Days, #28 TAB Prov:KAL FOSTER 09/09/21 Scheduled Cefdinir (Cefdinir), 300 MG PO BID Pantoprazole Sodium (Protonix ), 40 MG PO DAILYAC Scheduled PRN Meclizine Hcl (Meclizine Hcl), 25 MG PO TID PRN PRN for DIZZINESS Discontinued Medications Cefpodoxime Proxetil (Cefpodoxime Proxetil), 1 TAB PO BID Ondansetron (Ondansetron Odt), 1 TAB PO PRN Q6-8HRS Justicifation of Admission Dx: Justifications for Admission: Justification of Admission Dx: N/A CAL HARDIN MD Sep 11, 2021 11:25
--- NOTE | 2021-09-11 12:05 | NUR ---
Discharge instructions given and prescriptions sent via electronic to pharmacy. Answered questions and concerns. Verbalized understanding. Pt escorted out by w/c. Daughter here to take her home.
[2021-09-11] MEDS ORDERED: MECLIZINE HCL 12.5 MG TABLET. PO PRN (15:13)
[2021-09-11] MEDS ORDERED: CEFDINIR 300 MG CAPSULE PO SCH (21:00)
[2021-09-12] MEDS ORDERED: PANTOPRAZOLE 40 MG TABLET.DR. PO SCH (07:30)
== END 2021-09-11 12:05 | disposition home or self-care (01) | DRG 872 ==
LOC: ER 11:23 → 4 NORTH 15:20
PROVIDERS: ADMIT Internal Medicine; ATTEND Internal Medicine
DX: A41.9 Sepsis, unspecified organism (principal); N39.0 Urinary tract infection, site not specified; K52.9 Noninfective gastroenteritis and colitis, unspecified; E78.5 Hyperlipidemia, unspecified; E87.6 Hypokalemia; F17.210 Nicotine dependence, cigarettes, uncomplicated; H81.10 Benign paroxysmal vertigo, unspecified ear; Z82.49 Family history of ischemic heart disease and other diseases of the circulatory system; Z83.71 Family history of colonic polyps; Z86.73 Personal history of transient ischemic attack (TIA), and cerebral infarction without residual deficits; Z88.2 Allergy status to sulfonamides
CPT/HCPCS: 36415; 74176; 80048; 80053; 81001; 83690; 84484; 85007; 85025; 85027; 87077; 87086; 87177; 87186; 87205; 87209; 87493; 87505; 93005; 96361; 96374; 96375; C9113; J0696; J0780; J1885; J2405; J3480; J7030; 97110-GP; 97116-GP; 97530-GP; 99285-25; G0378; J8597